=== PATIENT | female | born 1940 | race Caucasian/White ===

== ENCOUNTER 2017-12-11 01:16 | Outpatient (CLI) | payer MEDICARE, SELFPAY ==
[2017-12-12 10:21] LABS: CEA 0.6 ng/ml
== END 2017-12-11 01:36 ==
PROVIDERS: Visit Provider Internal Medicine Hematology & Oncology
DX: C20 Malignant neoplasm of rectum (principal)
CPT/HCPCS: 36415; 82378

== ENCOUNTER 2017-12-13 14:53 | Outpatient (CLI) | payer MEDICARE, SELFPAY ==
--- NOTE | 2017-12-13 12:29 | DI.US_ITS ---
SYMPTOMS/DIAGNOSIS: POSTMENOPAUSAL BLEEDING, N95.0 PELVIC ULTRASOUND: Transabdominal and transvaginal examination was performed. The uterus measures 5.2 cm long x 1.7 cm AP x 2.1 cm transverse. The endometrial stripe is within normal limits at 0.2 cm. No myometrial mass is present. The ovaries were not seen transabdominally or transvaginally. No adnexal masses are present. The kidneys show no evidence of hydronephrosis. Incidental note is made of a small simple cyst on the right kidney. IMPRESSION: Nonvisualization of the ovaries. Otherwise negative pelvic ultrasound.
== END 2017-12-13 15:13 ==
PROVIDERS: Visit Provider Nurse Practitioner Family
DX: N95.0 Postmenopausal bleeding (principal)
CPT/HCPCS: 76830; 76856

== ENCOUNTER 2017-12-30 09:23 | Emergency (ER) | payer MEDICARE, SELFPAY ==
[2017-12-30 09:33] VITALS: BP 152/82; PULSE 87; RESP 16; TEMP 36.5; O2SAT 97
--- NOTE | 2017-12-30 10:06 | W.ED.GENAD ---
Discharge Plan Disposition Patient Disposition: HOME Condition: Good Discharge Details Chief Complaint: Urinary Clinical Impression: Acute UTI Primary Care Provider: Mae Romero ED Provider: Peterson Marquez Home Meds and New Rx's Prescriptions: New nitrofurantoin monohyd/m-cryst [Macrobid] 100 mg capsule 100 mg PO BID Qty: 9 RF: 0 No Action ANTI-DIARRHEAL+GAS RELIEF CPLT 1 EACH tablet 1 tab PO Daily prn RF: 0 multivitamin [Daily Multi-Vitamin] 1 EACH tablet 1 ea PO DAILY RF: 0 evening primrose oil [Evening Virgin] 500 MG capsule 500 mg PO DAILY RF: 0 ibuprofen 200 MG capsule 2 cap PO BID PRN RF: 0 calcium carbonate-vitamin D3 1 EACH tablet 1 ea PO BID RF: 0 glucosam-chond to-teftay-au ac 1 EACH capsule 1 ea PO BID RF: 0 cranberry fruit concentrate 450 MG capsule 2 tab PO DAILY RF: 0 ferrous gluconate 325 MG tablet 325 mg PO 2x/week Qty: 100 RF: 0 probiotic gummy 2 RF: 0 lisinopril 10 MG tablet 10 mg PO DAILY Qty: 90 RF: 3 psyllium husk [Metamucil] 0.52 GM capsule 1 cap PO DAILY RF: 0 nystatin (bulk) 1 EACH powder 1 applic Topical BID PRN Qty: 60 RF: 2 hydrochlorothiazide 12.5 MG tablet 12.5 mg PO DAILY Qty: 90 RF: 4 Discharge Instructions Instructions: Urinary Tract Infection in Women (ED) Additional Instructions: Feel free to return to the emergency department for any new or worsening symptoms otherwise follow-up with your primary care provider if not improving over the next couple days. Take your antibiotics until fully complete Referrals: Mae Romero, CATERING SALES MANAGER [Primary Care Provider] - (As needed for reassessment or if not improving) Medical Decision Making Patient presenting to the emergency department for chief complaint of UTI. Patient reports that she yesterday began having urinary frequency and took a Pyridium that seemed to help. Then beginning early this morning she started having a return of symptoms with some burning associated along with urination. She does state previous urinary tract infections with similar presentation. Patient denies any other symptoms. Physical exam is unremarkable and shows no CVA tenderness, patient is alert and oriented, patient has no other findings that would make me concerned for urosepsis, pyelonephritis, or other etiology at this time. staffing and scheduling coordinator initiated protocol for urinalysis and patient denies any need for anything pending results. After review of urinalysis which is consistent with urinary tract infection old records were reviewed and patient was placed upon Macrobid as previously she had been placed upon Keflex. Patient encouraged t follow-up with her primary care provider if not improving over the next couple days. After discussion of diagnosis and plan of care patient is no further needs, questions, or concerns and states clear understanding to return to the emergency department for any worsening symptoms. Medical Records Medical records reviewed: Yes I reviewed the patient's medical records. Lab Data Lab results reviewed: Yes I reviewed the patient's lab results. HPI General Mode of arrival: ambulatory. Date/Time Provider Initiated Documentation: 12/30/17 09:59. Limitations to Documentation: no limitations. Information obtained by: patient, RN notes reviewed and old records reviewed. History of Present Illness 77 year old F presents to the emergency department with the chief complaint of UTI, Quality is described as burning, and is localized to the genitals. Patient reports no radiation. Patient started experiencing this day(s) (1) and it has been intermittent. other things that improve symptom(s), (Pyridium) No exacerbating factors reported . Patient notes no other symptoms.. Patient did receive the following treatments prior to arrival, none Related Data Home Medications Medication Instructions Recorded Confirmed Anti-Diarrheal+Gas Relief Cplt 1 tab PO Daily prn 10/27/12 12/12/17 calcium carbonate-vitamin D3 1 ea PO BID 10/27/12 12/12/17 cranberry fruit concentrate 2 tab PO DAILY 10/27/12 12/12/17 evening primrose oil [Evening 500 mg PO DAILY 10/27/12 12/12/17 Virgin] glucosam-chond hy-ytdwes-jx ac 1 ea PO BID 10/27/12 12/12/17 ibuprofen 2 cap PO BID PRN tab-cap 10/27/12 12/12/17 multivitamin [Daily Multi-Vitamin] 1 ea PO DAILY 10/27/12 12/12/17 ferrous gluconate 325 mg PO 2x/week #100 tab-cap 10/29/15 Probiotic Gummy 2 11/24/16 12/12/17 lisinopril 10 mg PO DAILY #90 tab-cap 08/07/17 psyllium husk [Metamucil] 1 cap PO DAILY 09/18/17 12/12/17 nystatin (bulk) 1 applic TOPICAL BID PRN #60 gm 09/22/17 hydrochlorothiazide 12.5 mg PO DAILY #90 tab-cap 11/08/17 nitrofurantoin monohyd/m-cryst 100 mg PO BID #9 cap 12/30/17 [Macrobid] Previous Rx's Medication Instructions Recorded lisinopril 10 mg PO DAILY #90 tab-cap 08/07/17 nystatin (bulk) 1 applic TOPICAL BID PRN #60 gm 09/22/17 hydrochlorothiazide 12.5 mg PO DAILY #90 tab-cap 11/08/17 nitrofurantoin monohyd/m-cryst 100 mg PO BID #9 cap 12/30/17 [Macrobid] Allergies Allergy/AdvReac Type Severity Reaction Status Date / Time Sulfa (Sulfonamide Allergy Unknown Unverified 12/30/17 10:58 Antibiotics) sulfamethoxazole Allergy Unknown Unverified 12/30/17 10:58 [From Bactrim] trimethoprim [From Bactrim] Allergy Unknown Unverified 12/30/17 10:58 General Stated Complaint: Urinary LEESA: 4 Review of Systems Constitutional Denies body ache(s), Denies chills, Denies fever(s), Denies malaise and Denies weakness Cardiovascular Denies chest pain Respiratory Reports system reviewed and no additional complaints, except as docu Gastrointestinal Denies abdominal pain, Denies nausea and Denies vomiting Genitourinary Reports as per HPI, Denies hematuria, Reports dysuria and Reports urinary urgency Neurologic Denies confusion and Denies weakness Psychiatric Denies confusion [facility] Family History Mother Diabetes Essential hypertension Neoplasm Cerebrovascular accident Maternal Aunt Neoplasm Father No problems noted. Grandfather Heart disease Grandmother No problems noted. Son No problems noted. Daughter No problems noted. Social History Smoking/Tobacco Use Status: Former Tobacco Use alcohol intake: current substance use type: does not use seatbelt use: always Surgical History section Colectomy (~2002) FLEX SIG (01/02/15) Female Reproductive History Menstrual Menopause type: natural Exam Const General: cooperative and no acute distress Orientation: alert, awake and oriented x3 Resp Effort & Inspection: normal respiratory effort and able to speak in complete sentences Auscultation: clear to auscultation bilaterally Cardio Rate: regular rate Rhythm: regular rhythm Heart Sounds: S1 normal and S2 normal GI Palpation: nontender Back/Spine/Pelvis Back: no CVA tenderness Neuro General: alert, awake and oriented x3 Extrem General: normal capillary refill Course Vital Signs Temperature 36.5 C 12/30/17 09:33 Pulse 87 12/30/17 09:33 Respiratory Rate 16 12/30/17 09:33 Blood Pressure 152/82 H 12/30/17 09:33 Pulse Oximetry 97 12/30/17 09:33 Temperature 36.5 C 12/30/17 09:33 Temperature Source Skin 12/30/17 09:33 Pulse 87 12/30/17 09:33 Respiratory Rate 16 12/30/17 09:33 Respiratory Effort Accessory Muscle Use 12/30/17 09:34 Blood Pressure 152/82 H 12/30/17 09:33 Blood Pressure Position Sitting 12/30/17 09:33 Pulse Oximetry 97 12/30/17 09:33 Oxygen Delivery Method Room Air 12/30/17 09:33 Oxygen Flow Rate 0 12/30/17 09:33 Pain Level 0 12/30/17 09:34
--- NOTE | 2017-12-30 10:10 | ED.GENADUL_ITS ---
Discharge Plan Disposition Patient Disposition: HOME Condition: Good Discharge Details Chief Complaint: Urinary Clinical Impression: Acute UTI Primary Care Provider: Mae Romero ED Provider: Peterson Marquez Home Meds and New Rx's Prescriptions: New nitrofurantoin monohyd/m-cryst [Macrobid] 100 mg capsule 100 mg PO BID Qty: 9 RF: 0 No Action ANTI-DIARRHEAL+GAS RELIEF CPLT 1 EACH tablet 1 tab PO Daily prn RF: 0 multivitamin [Daily Multi-Vitamin] 1 EACH tablet 1 ea PO DAILY RF: 0 evening primrose oil [Evening [place]] 500 MG capsule 500 mg PO DAILY RF: 0 ibuprofen 200 MG capsule 2 cap PO BID PRN RF: 0 calcium carbonate-vitamin D3 1 EACH tablet 1 ea PO BID RF: 0 glucosam-chond me-dztznd-ic ac 1 EACH capsule 1 ea PO BID RF: 0 cranberry fruit concentrate 450 MG capsule 2 tab PO DAILY RF: 0 ferrous gluconate 325 MG tablet 325 mg PO 2x/week Qty: 100 RF: 0 probiotic gummy 2 RF: 0 lisinopril 10 MG tablet 10 mg PO DAILY Qty: 90 RF: 3 psyllium husk [Metamucil] 0.52 GM capsule 1 cap PO DAILY RF: 0 nystatin (bulk) 1 EACH powder 1 applic Topical BID PRN Qty: 60 RF: 2 hydrochlorothiazide 12.5 MG tablet 12.5 mg PO DAILY Qty: 90 RF: 4 Discharge Instructions Instructions: Urinary Tract Infection in Women (ED) Additional Instructions: Feel free to return to the emergency department for any new or worsening symptoms otherwise follow-up with your primary care provider if not improving over the next couple days. Take your antibiotics until fully complete Referrals: Mae Romero, WELLFIELD TECHNICIAN [Primary Care Provider] - (As needed for reassessment or if not improving) Medical Decision Making Patient presenting to the emergency department for chief complaint of UTI. Patient reports that she yesterday began having urinary frequency and took a Pyridium that seemed to help. Then beginning early this morning she started having a return of symptoms with some burning associated along with urination. She does state previous urinary tract infections with similar presentation. Patient denies any other symptoms. Physical exam is unremarkable and shows no CVA tenderness, patient is alert and oriented, patient has no other findings that would make me concerned for urosepsis, pyelonephritis, or other etiology at this time. medical staffing coordinator initiated protocol for urinalysis and patient denies any need for anything pending results. After review of urinalysis which is consistent with urinary tract infection old records were reviewed and patient was placed upon Macrobid as previously she had been placed upon Keflex. Patient encouraged t follow-up with her primary care provider if not improving over the next couple days. After discussion of diagnosis and plan of care patient is no further needs, questions, or concerns and states clear understanding to return to the emergency department for any worsening symptoms. Medical Records Medical records reviewed: Yes I reviewed the patient's medical records. Lab Data Lab results reviewed: Yes I reviewed the patient's lab results. HPI General Mode of arrival: ambulatory . Date/Time Provider Initiated Documentation: 12/30/17 09:59 . Limitations to Documentation: no limitations . Information obtained by: patient, RN notes reviewed and old records reviewed . History of Present Illness 77 year old F presents to the emergency department with the chief complaint of UTI, Quality is described as burning, and is localized to the genitals. Patient reports no radiation. Patient started experiencing this day(s) (1) and it has been intermittent. other things that improve symptom(s), (Pyridium ) No exacerbating factors reported . Patient notes no other symptoms.. Patient did receive the following treatments prior to arrival, none Related Data Home Medications Medication Instructions Recorded Confirmed Anti-Diarrheal+Gas Relief Cplt 1 tab PO Daily prn 10/27/12 12/12/17 calcium carbonate-vitamin D3 1 ea PO BID 10/27/12 12/12/17 cranberry fruit concentrate 2 tab PO DAILY 10/27/12 12/12/17 evening primrose oil [Evening 500 mg PO DAILY 10/27/12 12/12/17 [place]oo] glucosam-chond pc-gdywpe-oj ac 1 ea PO BID 10/27/12 12/12/17 ibuprofen 2 cap PO BID PRN tab-cap 10/27/12 12/12/17 multivitamin [Daily Multi-Vitamin] 1 ea PO DAILY 10/27/12 12/12/17 ferrous gluconate 325 mg PO 2x/week #100 tab-cap 10/29/15 Probiotic Gummy 2 11/24/16 12/12/17 lisinopril 10 mg PO DAILY #90 tab-cap 08/07/17 psyllium husk [Metamucil] 1 cap PO DAILY 09/18/17 12/12/17 nystatin (bulk) 1 applic TOPICAL BID PRN #60 gm 09/22/17 hydrochlorothiazide 12.5 mg PO DAILY #90 tab-cap 11/08/17 nitrofurantoin monohyd/m-cryst 100 mg PO BID #9 cap 12/30/17 [Macrobid] Previous Rx's Medication Instructions Recorded lisinopril 10 mg PO DAILY #90 tab-cap 08/07/17 nystatin (bulk) 1 applic TOPICAL BID PRN #60 gm 09/22/17 hydrochlorothiazide 12.5 mg PO DAILY #90 tab-cap 11/08/17 nitrofurantoin monohyd/m-cryst 100 mg PO BID #9 cap 12/30/17 [Macrobid] Allergies Allergy/AdvReac Type Severity Reaction Status Date / Time Sulfa (Sulfonamide Allergy Unknown Unverified 12/30/17 10:58 Antibiotics) sulfamethoxazole Allergy Unknown Unverified 12/30/17 10:58 [From Bactrim] trimethoprim [From Bactrim] Allergy Unknown Unverified 12/30/17 10:58 General Stated Complaint: Urinary LEESA: 4 Review of Systems Constitutional Denies body ache(s), Denies chills, Denies fever(s), Denies malaise and Denies weakness Cardiovascular Denies chest pain Respiratory Reports system reviewed and no additional complaints, except as docu Gastrointestinal Denies abdominal pain, Denies nausea and Denies vomiting Genitourinary Reports as per HPI, Denies hematuria, Reports dysuria and Reports urinary urgency Neurologic Denies confusion and Denies weakness Psychiatric Denies confusion [facility] Family History Mother Diabetes Essential hypertension Neoplasm Cerebrovascular accident Maternal Aunt Neoplasm Father No problems noted. Grandfather Heart disease Grandmother No problems noted. Son No problems noted. Daughter No problems noted. Social History Smoking/Tobacco Use Status: Former Tobacco Use alcohol intake: current substance use type: does not use seatbelt use: always Surgical History section Colectomy (~2002) FLEX SIG (01/02/15) Female Reproductive History Menstrual Menopause type: natural Exam Const General: cooperative and no acute distress Orientation: alert, awake and oriented x3 Resp Effort & Inspection: normal respiratory effort and able to speak in complete sentences Auscultation: clear to auscultation bilaterally Cardio Rate: regular rate Rhythm: regular rhythm Heart Sounds: S1 normal and S2 normal GI Palpation: nontender Back/Spine/Pelvis Back: no CVA tenderness Neuro General: alert, awake and oriented x3 Extrem General: normal capillary refill Course Vital Signs Temperature 36.5 C 12/30/17 09:33 Pulse 87 12/30/17 09:33 Respiratory Rate 16 12/30/17 09:33 Blood Pressure 152/82 H 12/30/17 09:33 Pulse Oximetry 97 12/30/17 09:33 Temperature 36.5 C 12/30/17 09:33 Temperature Source Skin 12/30/17 09:33 Pulse 87 12/30/17 09:33 Respiratory Rate 16 12/30/17 09:33 Respiratory Effort Accessory Muscle Use 12/30/17 09:34 Blood Pressure 152/82 H 12/30/17 09:33 Blood Pressure Position Sitting 12/30/17 09:33 Pulse Oximetry 97 12/30/17 09:33 Oxygen Delivery Method Room Air 12/30/17 09:33 Oxygen Flow Rate 0 12/30/17 09:33 Pain Level 0 12/30/17 09:34
[2017-12-30 10:30] LABS: Bilirubin Negative (Negative); Blood Trace-intact (Negative); Clarity Cloudy; Glucose Negative (Negative); Ketones Trace mg/dL (Negative); Leukocyte Esterase Small (Negative); Nitrite Positive (Negative); Specific Gravity 1.025 (1.005-1.025); Urobilinogen 0.2 EU/dL (Up TO 0.2); pH 5.5 (5-8)
[2017-12-30 10:39] LABS: Bacteria Few HPF (Negative); C & S Indicated? Yes; Casts Negative LPF (Negative); Crystals Negative HPF (Negative); Epithelial Cells Negative HPF (Negative); Mucus Negative (Negative); WBC >50 HPF (0-5)
[2017-12-30] MEDS: MacroBID 100 MG CAP PO (10:55)
== END 2017-12-30 10:57 | disposition home or self-care (01) ==
PROVIDERS: Emergency Provider Nurse Practitioner Family
DX: N39.0 Urinary tract infection, site not specified (principal); B95.2 Enterococcus as the cause of diseases classified elsewhere
CPT/HCPCS: 87077; 99283; 81003; 81015; 87086; 87186

== ENCOUNTER 2018-01-05 01:08 | Outpatient (CLI) | payer MEDICARE, SELFPAY ==
--- NOTE | 2018-01-05 15:43 | DI.MAMMO_ITS ---
SYMPTOM/DIAGNOSIS: SCREENING, Z12.31 MAMMOGRAMS: Mammograms were interpreted according to the usual protocol including computer analysis with CAD system, tomosynthesis and C view imaging. Comparison is made with prior examinations. Breast density, category B. No suspicious masses or microcalcifications are seen. There has been no significant change compared to the prior examinations. IMPRESSION: No evidence for malignancy. Yearly mammography is recommended. Category 1. MQSA ASSESSMENT OF FINDINGS: Negative. Category 1. Patient will receive a letter notifying them of these results. BI-RADS category B. There are scattered areas of fibroglandular density.
== END 2018-01-05 01:28 ==
PROVIDERS: Visit Provider Nurse Practitioner Family
DX: Z12.31 Encounter for screening mammogram for malignant neoplasm of breast (principal)
CPT/HCPCS: 77063; 77067

== ENCOUNTER 2018-03-22 19:03 | Outpatient (REF) | payer MEDICARE, SELFPAY | END 2018-03-22 19:23 | LOC: LBN 19:03 | DX: N39.0 Urinary tract infection, site not specified (principal) | CPT/HCPCS: 87077; 87086; 87186 ==

== ENCOUNTER 2018-11-26 19:11 | Outpatient (REF) | payer MEDICARE, SELFPAY | END 2018-11-26 19:31 | LOC: LBN 19:11 | PROVIDERS: Visit Provider Internal Medicine | DX: R39.9 Unspecified symptoms and signs involving the genitourinary system (principal) | CPT/HCPCS: 87077; 87086; 87186 ==

== ENCOUNTER 2018-12-19 02:33 | Outpatient (CLI) | payer MEDICARE, SELFPAY ==
[2018-12-19 11:49] LABS: ALT 21 U/L (14-59); AST 15 U/L (15-37); Albumin 3.4 g/dL (3.4-5.0); Alkaline Phosphatase 68 U/L (46-116); Anion Gap 10.4 mmol/L (3-11); BUN 20 mg/dL (7-18); Bilirubin, Total 0.6 mg/dL (0.2-1.0); CO2 24.6 mmol/L (21.0-32.0); CREATININE 0.63 mg/dL (0.55-1.02); Calcium 8.7 mg/dL (8.5-10.1); Chloride 108 mmol/L (98-107); Glucose 96 mg/dL (70-100); Sodium 143 mmol/L (136-145); Total Protein 6.3 g/dL (6.4-8.2)
[2018-12-19 12:54] LABS: HCT 36.7 % (36.0-46.0); HGB 11.6 g/dL (12.0-15.5); Mean Corp. HGB Concentration 31.6 g/dL (32.0-36.0); Mean Corpuscular Hemoglobin 28.4 pg (27.0-33.0); Mean Corpuscular Volume 89.7 fL (80-95); Mean Platelet Volume 10.4 fL (8.0-11.0); Platelet Count 325 x1000/uL (130-400); RBC 4.09 m/cumm (4.00-5.20); RBC Distribution Width 15.2 % (11.7-14.6); White Blood Cell Count 3.73 k/cumm (4.4-10.8)
== END 2018-12-19 02:53 ==
DX: D64.9 Anemia, unspecified (principal); I10 Essential (primary) hypertension; L98.9 Disorder of the skin and subcutaneous tissue, unspecified; R10.9 Unspecified abdominal pain; R53.81 Other malaise; Z90.49 Acquired absence of other specified parts of digestive tract; Z91.89 Other specified personal risk factors, not elsewhere classified; D50.9 Iron deficiency anemia, unspecified
CPT/HCPCS: 36415; 80053; 85027

== ENCOUNTER 2018-12-21 11:37 | Outpatient (REF) | payer MEDICARE, SELFPAY | END 2018-12-21 11:57 | LOC: LBN 11:37 | PROVIDERS: Visit Provider Nurse Practitioner | DX: N39.0 Urinary tract infection, site not specified (principal) | CPT/HCPCS: 87077; 87086; 87186 ==

== ENCOUNTER 2019-01-07 01:17 | Outpatient (CLI) | payer MEDICARE, SELFPAY ==
--- NOTE | 2019-01-07 12:00 | DI.MAMMO_ITS ---
EXAM: MAMMO SCREENING CLINICAL HISTORY: Screening, Z12.39. TECHNIQUE: Mammograms were interpreted according to the usual protocol including computer analysis w [employer] CAD system, tomosynthesis and C-view imaging. COMPARISON: [id number] FINDINGS: The breasts are composed of fatty density tissue, BI-RADS category A. There are no suspicious masses or microcalcifications. There are no significant changes in comparison with the prior images. IMPRESSION: BI-RADS Cat 1 - Negative Breast Density - Category A - Almost entirely fatty
== END 2019-01-07 01:37 ==
PROVIDERS: Visit Provider Nurse Practitioner Family
DX: Z12.31 Encounter for screening mammogram for malignant neoplasm of breast (principal)
CPT/HCPCS: 77063; 77067

== ENCOUNTER 2019-08-13 10:13 | Outpatient (CLI) | payer MEDICARE, SELFPAY ==
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
== END 2019-08-13 10:33 ==
DX: M25.552 Pain in left hip (principal); M79.605 Pain in left leg; R26.9 Unspecified abnormalities of gait and mobility; M25.752 Osteophyte, left hip
CPT/HCPCS: 73521

== ENCOUNTER 2019-08-28 14:12 | Emergency (ER) | payer MEDICARE, SELFPAY ==
[2019-08-28] VITALS (49 sets, daily range): BP systolic 103–152; BP diastolic 51–101; PULSE 84–110; RESP 13–24; TEMP 36.8; O2SAT 93–100
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
--- NOTE | 2019-08-28 13:58 | DI.CT_ITS ---
EXAM: CT THORACIC LUMBAR SPINE REC CLINICAL HISTORY: recon please. TECHNIQUE: Imaging Protocol: Axial computed tomography images with coronal and sagittal reformatted images were created and reviewed. COMPARISON: CR LUMBAR SPINE COMPLETE from 09/15/2010 CR XR HIP PELVIS ADULT BL from 08/13/2019 FINDINGS: Thoracic spine: Bones: No fractures are seen. The alignment of the spine is normal including the cervicothoracic yessenia ction. There are mild degenerative disc changes. Soft tissues: The soft tissues of the chest are unremarkable. No large disk herniations are identifie d. Lumbar spine: There is no evidence of fracture or spondylolysis. There are degenerative disc changes greatest at L 2-3. Facet degenerative changes are prominent from L3-4 through L5-S1. There is mild degenerative s coliosis. No paraspinal hematoma is seen. IMPRESSION: No evidence of fracture or other acute abnormality. Degenerative changes are seen greater in the lum bar spine.. RADIATION DOSE DELIVERED: Total DLP DATA REPOSITORY: All CT scans at this facility are submitted to the National Radiology Data Registry (NRDR) Dose Index Registry (DIR) with the [employer] ([employer]). RADIATION OPTIMIZATION: All CT scans at this facility use at least one of these dose optimization te chniques: automated exposure control; mA and/or kV adjustment per patient size (includes targeted exa ms where dose is matched to clinical indication); or iterative reconstruction.
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
[2019-08-28 14:30] LABS: Abs Immature Grans 0.17 k/cumm (0.0-0.09); Absolute Basophil Count 0.03 k/cumm (0.0-0.2); Absolute Eosinophil Count 0.05 k/cumm (0.0-0.7); Absolute Lymphocyte Count 1.27 k/cumm (1.2-3.4); Absolute Monocyte Count 0.92 k/cumm (0.11-0.7); Basophils % 0.3; Eosinophils % 0.4; HCT 34.2 % (36.0-46.0); HGB 10.8 g/dL (12.0-15.5); Immature Grans % 1.5 %; Lymphocytes % 10.9; Mean Corp. HGB Concentration 31.6 g/dL (32.0-36.0); Mean Corpuscular Hemoglobin 28.1 pg (27.0-33.0); Mean Corpuscular Volume 88.8 fL (80-95); Mean Platelet Volume 9.5 fL (8.0-11.0); Monocytes % 7.9; Platelet Count 347 x1000/uL (130-400); RBC 3.85 m/cumm (4.00-5.20); RBC Distribution Width 15.8 % (11.7-14.6); White Blood Cell Count 11.64 k/cumm (4.4-10.8)
[2019-08-28 14:43] LABS: PTT Activated 19.2 sec (21.0-31.4); Prothrombin Time 9.7 sec (9.3-11.0)
[2019-08-28] MEDS: ACETAMINOPHEN 1,000 MG/100 ML BTL 400 MG IVPB (14:43)
[2019-08-28 14:45] LABS: ALT 34 U/L (14-59); AST 34 U/L (15-37); Albumin 3.4 g/dL (3.4-5.0); Alkaline Phosphatase 68 U/L (46-116); Anion Gap 10.2 mmol/L (3-11); BUN 31 mg/dL (7-18); Bilirubin, Total 0.6 mg/dL (0.2-1.0); CO2 23.8 mmol/L (21.0-32.0); CREATININE 0.84 mg/dL (0.55-1.02); Calcium 9.3 mg/dL (8.5-10.1); Chloride 105 mmol/L (98-107); Glucose 120 mg/dL (74-106); Potassium 3.6 mmol/L (3.5-5.1); Sodium 139 mmol/L (136-145); Total Protein 6.7 g/dL (6.4-8.2); Troponin I < 0.05 ng/mL (<0.06)
[2019-08-28 14:56] LABS: Lipase 186 U/L (73-393)
[2019-08-28 18:24] LABS: Troponin I < 0.05 ng/mL (<0.06)
== END 2019-08-28 21:08 | disposition short-term general hospital (02) ==
PROVIDERS: Emergency Provider Physician Assistant
DX: S26.19XA Other injury of heart without hemopericardium, initial encounter (principal); S20.312A Abrasion of left front wall of thorax, initial encounter; S80.11XA Contusion of right lower leg, initial encounter; S80.12XA Contusion of left lower leg, initial encounter; S22.42XA Multiple fractures of ribs, left side, initial encounter for closed fracture; S61.412A Laceration without foreign body of left hand, initial encounter; R94.31 Abnormal electrocardiogram [ECG] [EKG]; V47.5XXA Car driver injured in collision with fixed or stationary object in traffic accident, initial encounter; I10 Essential (primary) hypertension
CPT/HCPCS: 36415; 74177; 80053; 83690; 86850; 86900; 86901; 93005; 96374; 99285; 70450; 71260; 72125; 81003; 83735; 84484; 85025; 85610; 85730; 93010; J0131

== ENCOUNTER 2019-11-04 20:40 | Outpatient (REF) | payer MEDICARE, SELFPAY ==
[2019-11-04 21:04] LABS: Bilirubin Negative (Negative); Blood Trace-intact (Negative); Clarity Clear (Clear); Glucose Negative (Negative); Ketones Negative (Negative); Leukocyte Esterase Small (Negative); Nitrite Negative (Negative); Urobilinogen 0.2 EU/dL (Up TO 0.2)
[2019-11-04 21:33] LABS: Bacteria Negative HPF (Negative); C & S Indicated? Yes; Casts Negative LPF (Negative); Crystals Negative HPF (Negative); Epithelial Cells Negative HPF (Negative); Mucus Negative (Negative); Other Cells Negative (Negative); RBC Negative HPF (0-2); WBC 20-50 HPF (0-5)
== END 2019-11-04 21:00 ==
LOC: LBN 20:40
DX: R30.0 Dysuria (principal)
CPT/HCPCS: 81003; 81015; 87086

== ENCOUNTER 2019-11-12 20:47 | Outpatient (REF) | payer MEDICARE, SELFPAY ==
[2019-11-12 22:22] LABS: Bilirubin Negative (Negative); Blood Trace-intact (Negative); Clarity Sl Cloudy (Clear); Glucose Negative (Negative); Ketones Negative (Negative); Leukocyte Esterase Moderate (Negative); Nitrite Positive (Negative); Specific Gravity >= 1.030 (1.005-1.025); Urobilinogen 0.2 EU/dL (Up TO 0.2)
[2019-11-12 22:25] LABS: C & S Indicated? Yes; WBC >50 HPF (0-5)
== END 2019-11-12 21:07 ==
LOC: LBN 20:47
DX: N39.0 Urinary tract infection, site not specified (principal)
CPT/HCPCS: 87077; 81003; 81015; 87086; 87186

== ENCOUNTER → 2019-12-04 10:54 | Outpatient (BNVA) | payer MEDICARE, SELFPAY | PROVIDERS: Visit Provider Nurse Practitioner Gerontology | DX: N39.0 Urinary tract infection, site not specified (principal); I10 Essential (primary) hypertension; C20 Malignant neoplasm of rectum; D64.9 Anemia, unspecified | CPT/HCPCS: 81003; 99204; 99215 ==

== ENCOUNTER 2019-12-04 21:13 | Outpatient (REF) | payer MEDICARE, SELFPAY | END 2019-12-04 21:33 | LOC: LBN 21:13 | PROVIDERS: Visit Provider Nurse Practitioner Gerontology | DX: N39.0 Urinary tract infection, site not specified (principal) | CPT/HCPCS: 87086 ==

== ENCOUNTER → 2019-12-18 10:54 | Outpatient (BNVA) | payer MEDICARE, SELFPAY | PROVIDERS: Visit Provider Nurse Practitioner Gerontology | DX: N39.0 Urinary tract infection, site not specified (principal); I10 Essential (primary) hypertension; Z92.3 Personal history of irradiation; Z85.038 Personal history of other malignant neoplasm of large intestine | CPT/HCPCS: 81003; 99213 ==

== ENCOUNTER 2020-01-24 02:58 | Outpatient (CLI) | payer MEDICARE, SELFPAY ==
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
== END 2020-01-24 03:18 ==
DX: Z12.31 Encounter for screening mammogram for malignant neoplasm of breast (principal); R92.1 Mammographic calcification found on diagnostic imaging of breast
CPT/HCPCS: 77063; 77067

== ENCOUNTER 2020-03-25 01:54 | Outpatient (CLI) | payer MEDICARE, SELFPAY ==
--- OUTSIDE RECORDS SUMMARY | 2020-03-25 01:56 | XMS_ITS ---
:1940 Author Care Team Providers Name Role Phone DR. THAI BEAR Primary Care Provider [phone] DR. THAI BEAR Referring Provider [phone] DEBBIE CANTU Primary Care Provider [phone] Allergies Code Code System Name Reaction Severity Status Onset Sulfa (Sulfonamide ? ? Active ? Antibiotics) 86270 RxNorm Sulfamethoxazole ? ? Active ? 98270 RxNorm Trimethoprim ? ? Active ? Medications Name Status Start Date Stop Date ? ? calcium carbonate 600 mg (1,500 mg)-vitamin D3 200 unit tablet A ctive ? Not available Take 1 tablet every day by oral route. cranberry 450 mg tablet Active ? Not avai lable Take 2 tablets every day by oral route. estradiol 0.01% (0.1 mg/gram) vaginal cream Completed ? 08/15/2017 Insert by vaginal route. evening primrose oil 500 mg capsule Active ? Not available Take 1 capsule every day by oral route. ferrous gluconate 325 mg (27 mg iron) tablet Active ? Not available Take 1 tablet twice a week by oral route. Glucos Chond Cplx Advanced Active ? Not a vailable once daily hydrochlorothiazide 12.5 mg tablet Active ? Not available Take 1 tablet every day by oral route. ibuprofen 200 mg tablet Active ? Not avai lable Take 1 tablet every 6 hours by oral route as needed. lisinopril 10 mg tablet Active ? Not avai lable Take 1 tablet every day by oral route. lisinopril 5 mg tablet Completed ? 8 Take 1 tablet every day by oral route. loperamide-simethicone 2 mg-125 mg tablet Active ? Not available Take 1 tablet as needed by oral route as needed. Metamucil (with sugar) 3.4 gram oral Active ? Not available powder packet multivitamin Active ? Not available once daily nystatin (bulk) 1 billion unit powder Active ? Not available Probiotic Active ? Not available Take Two daily Vitamin C 500 mg capsule,extended release Active ? Not available Take 1 capsule twice a week by oral route. Problems Name Status Onset Date Source ? Malignant Tumor of Colon Active 04/03/2002 ? Malignant Tumor of Rectum Active 08/07/2017 ? Anemia Active 08/07/2017 ? Atrophic Vaginitis Active 08/07/2017 ? Osteoarthritis Active 08/07/2017 ? Hypertensive Disorder Active ? ? Procedures Date Name Performed by ? 01/02/2015 Flexible Sigmoidoscopy Information not a vailable Notes: MARYLU 04/03/2002 Bowel Surgery Procedure Information not available Notes: colon resection ? Caesarean Section Information not avai lable Results Lab Results None recorded. Past Encounters None recorded. Social History Tobacco Smoking Status Former Smoker Notes: 09/15/19 Vaccine List Vaccine Type pneumococcal conjugate PCV 13 01/05/2017 pneumococcal polysaccharide PPV23 01/07/2010 Td (adult) 01/10/2012 zoster live 02/07/2008 Plan of Care Reminders Provider Appointments None ? ? recorded. Lab None ? ? recorded. Referral None ? ? recorded. Procedures None ? ? recorded. Surgeries None ? ? recorded. Imaging None ? ? recorded. Vitals 09/14/2017 11:00AM FOLLOW UP Height Weight BMI Blood Pressure 149.86 cm 54.88 kg 24.4 kg/m2 122/74 mm[Hg] 08/15/2017 01:15PM CONSULT Height Weight BMI Blood Pressure 149.86 cm 55.79 kg 24.8 kg/m2 140/72 mm[Hg]
[2020-03-25 14:31] LABS: Abs Immature Grans 0.02 10^3/uL (0.0-0.06); Absolute Basophil Count 0.04 10^3/uL (0.0-0.2); Absolute Eosinophil Count 0.11 10^3/uL (0.0-0.7); Absolute Lymphocyte Count 1.24 10^3/uL (1.2-3.4); Absolute Neutrophil Count 3.66 10^3/uL (1.2-6.7); Basophils % 0.7; HCT 37.4 % (36.0-46.0); HGB 11.9 g/dL (11.2-15.7); Immature Grans % 0.4; Lymphocytes % 22.3; MCH 28.6 pg (27.0-33.0); MCHC 31.8 % (32.0-36.0); MCV 89.9 fL (80-95); MPV 9.6 fL (8.0-11.0); Neutrophils % 65.6; Nucleated RBC 0 %; Platelet Count 275 10^3/uL (130-400); RBC 4.16 10^6/uL (3.93-5.22); RDW 14.6 % (11.7-14.6); WBC 5.57 10^3/uL (4.4-10.8)
== END 2020-03-25 02:14 ==
DX: Z87.440 Personal history of urinary (tract) infections (principal); R35.0 Frequency of micturition; R82.998 Other abnormal findings in urine; Z79.899 Other long term (current) drug therapy
CPT/HCPCS: 36415; 81003; 99213; 85025

== ENCOUNTER 2020-04-07 18:16 | Outpatient (REF) | payer MEDICARE, SELFPAY ==
[2020-04-07 21:31] LABS: Bilirubin Negative (Negative); Blood Negative (Negative); Clarity Cloudy (Clear); Glucose Negative (Negative); Ketones Negative (Negative); Leukocyte Esterase Moderate (Negative); Nitrite Positive (Negative); Specific Gravity >= 1.030 (1.005-1.025); Urobilinogen 0.2 EU/dL (Up TO 0.2); pH 5.5 (5-8)
[2020-04-07 22:00] LABS: Bacteria Negative HPF (Negative); Epithelial Cells Negative HPF (Negative); RBC Negative HPF (0-2); WBC 20-50 HPF (0-5)
[2020-04-07 22:01] LABS: Crystals Many Amorphous HPF (Negative)
[2020-04-07 22:02] LABS: C & S Indicated? Yes; Casts Negative LPF (Negative); Mucus Negative (Negative)
== END 2020-04-07 18:36 ==
LOC: LBN 18:16
DX: N39.0 Urinary tract infection, site not specified (principal)
CPT/HCPCS: 87077; 81003; 81015; 87086; 87186

== ENCOUNTER 2020-07-30 17:25 | Inpatient (IN) | payer MEDICARE, SELFPAY ==
[2020-07-30 17:45] VITALS: BP 173/73; PULSE 95; RESP 20; TEMP 36.6; O2SAT 96
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
--- NOTE | 2020-07-30 18:54 | DI.RAD_ITS ---
Exam(s) XR HAND LT COMPLETE EXAM: XR HAND LT COMPLETE CLINICAL HISTORY: twisted in dog collar. TECHNIQUE: 2D digital imaging was performed. COMPARISON: No exams were available for comparison FINDINGS: BONES: There is an acute oblique fracture through the midshaft of the proximal phalanx of the left mi ddle finger the fracture does not appear to extend into the articular surfaces. There is 9 mm of rad ial displacement of the distal fracture with 5 mm of overriding of the fragments. No bony destructiv e lesion is seen. Bones are osteopenic. JOINTS: No dislocation present. There are degenerative changes in the hand and wrist most marked at t he 1st CMC joint. SOFT TISSUE: There is soft tissue swelling of the 3rd finger. IMPRESSION: Displaced oblique fracture of the proximal phalanx of the left middle finger. DATA REPOSITORY: RADIATION DOSE DELIVERED:
--- NOTE | 2020-07-30 19:09 | DI.VRAD_ITS ---
PROCEDURE INFORMATION: Exam: XR Left Hand Exam date and time: 07/30/2020 6:57 PM Age: 80 years old Clinical indication: Other: Twisted in dog collar TECHNIQUE: Imaging protocol: XR Left hand. Views: 3 or more views. COMPARISON: No relevant prior studies available. FINDINGS: Bones/joints: Oblique extra-articular fracture of the 3rd proximal phalanx with 9 mm radial displacement and 5 mm overriding of fragments. Diffuse osteopenia. Osteoarthritis, most prominent at the triscaphe and 1st carpometacarpal joints. Soft tissues: Normal. IMPRESSION: 1. Displaced extra-articular oblique fracture of the middle finger proximal phalanx. 2. Osteopenia. 3. Osteoarthritis. Dictated and Authenticated by: Jaspreet Neal MD. Ordering:GEMMA Moss MD
[2020-07-30 19:36] VITALS: BP 169/72; PULSE 80; RESP 18; TEMP 36.6; O2SAT 97
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
[2020-07-30 19:49] LABS: Source Nasal/Nares
[2020-07-30 20:36] VITALS: BP 169/72; PULSE 80; RESP 18; TEMP 36.6; O2SAT 97
[2020-07-30 20:37] LABS: HCT 39.5 % (36.0-46.0); MCH 29.5 pg (27.0-33.0); MCHC 32.9 % (32.0-36.0); MCV 89.6 fL (80-95); MPV 9.5 fL (8.0-11.0); Platelet Count 295 10^3/uL (130-400); RBC 4.41 10^6/uL (3.93-5.22); RDW 14.6 % (11.7-14.6); RDW-SD 48.4 fL; WBC 8.18 10^3/uL (4.4-10.8)
[2020-07-30 20:58] LABS: Prothrombin Time 9.9 sec (9.3-11.0)
[2020-07-30 21:00] LABS: ALT 25 U/L (14-59); AST 18 U/L (15-37); Albumin 3.9 g/dL (3.4-5.0); Alkaline Phosphatase 80 U/L (46-116); Anion Gap 11.3 mmol/L (3-11); BUN 26 mg/dL (7-18); Bilirubin, Total 0.6 mg/dL (0.2-1.0); CO2 26.7 mmol/L (21.0-32.0); CREATININE 0.8 mg/dL (0.55-1.02); Calcium 9.7 mg/dL (8.5-10.1); Chloride 104 mmol/L (98-107); Glucose 106 mg/dL (74-106); Sodium 142 mmol/L (136-145); Total Protein 7.4 g/dL (6.4-8.2)
[2020-07-30 21:09] VITALS: BP 195/43; PULSE 81; RESP 19; TEMP 36.1; O2SAT 97
[2020-07-30] MEDS: Normal Saline 1,000 ML 30 ML IV (21:09)
--- NOTE | 2020-07-30 21:54 | DI.RAD_ITS ---
Exam(s) XR PORTABLE CHEST AP EXAM: XR PORTABLE CHEST AP CLINICAL HISTORY: PREOP TECHNIQUE: 2D digital imaging was performed. COMPARISON: No exams were available for comparison FINDINGS: MEDIASTINUM: Normal. HEART: Normal. PULMONARY VASCULATURE: Normal. LUNGS: Clear. PLEURAL SPACE: No pleural effusion or pneumothorax. BONE:Within normal limits for the patient's age. OTHER FINDINGS:Normal. IMPRESSION: No acute pulmonary findings. DATA REPOSITORY: RADIATION DOSE DELIVERED:
--- NOTE | 2020-07-30 21:59 | DI.VRAD_ITS ---
PROCEDURE INFORMATION: Exam: XR Chest Exam date and time: 07/30/2020 7:54 PM Age: 80 years old Clinical indication: Pre-operative exam; Cardiovascular screening and respiratory screening exam TECHNIQUE: Imaging protocol: XR of the chest. Views: 1 view. COMPARISON: CT CHEST/ABD/PEL W 08/28/2019 3:09 PM FINDINGS: Lungs: Unremarkable. No consolidation. Pleural spaces: Unremarkable. No pleural effusion. No pneumothorax. Heart/Mediastinum: Unremarkable. No cardiomegaly. Bones/joints: Unremarkable. IMPRESSION: No acute abnormality. Dictated and Authenticated by: Jaspreet Neal MD. Ordering:SILVINA Wallis MD
--- NOTE | 2020-07-30 22:00 | RT.EKG_ITS ---
APPROVED REPORT Exam: Resting ECG Patient Location: I HR:76 bpm ECG Measurements Heart Rate 76 AXIS TN 156 P 65 QRSd 84 QRS 65 QT 419 T 69 QTc 472 Conclusion Sinus rhythm...normal P axis, V-rate 60- [address] depression, diffuse leads...ST <-0.07mV, ant/lat/inf
[2020-07-30 22:03] LABS: COVID-19 PCR Negative (Negative)
[2020-07-30] MEDS: Normal Saline 1,000 ML 75 ML IV (23:59)
[2020-07-31 01:13] VITALS: BP 156/91; PULSE 84; RESP 18; TEMP 36.2; O2SAT 96
[2020-07-31] MEDS: Lisinopril 10 MG TAB PO (07:56)
[2020-07-31] MEDS: hydroCHLOROthiazide 12.5 MG TAB PO (07:56)
[2020-07-31] MEDS: Acetaminophen 325 MG TAB 650 MG PO (07:56)
[2020-07-31 08:13] VITALS: BP 155/80; BP 162/83; PULSE 68; RESP 20; TEMP 36.3; O2SAT 97
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
[2020-07-31 11:16] VITALS: BP 156/78; PULSE 67; RESP 19; TEMP 36.6; O2SAT 97
[2020-07-31] MEDS: Normal Saline 1,000 ML 75 ML IV (11:23)
[2020-07-31 11:53] VITALS: BMI 38.0
--- NOTE | 2020-07-31 12:48 | NUR.NOTE ---
Nursing Note: At 1233 on 07/31/20, this RN brought the pt. down to the PACU to go to the OR for surgery. Per MD plan, pt. is to go from the OR to the PACU to the Day Surgery and will be discharged home from there. Pt.'s room was completely packed up and valuables from the safe were returned to the pt. At 1240 on 07/31/20, this RN gave bedside report on the pt. to the beautician apprentice RN (CECIL Peralta sp?). Responsibility of care transferred to beautician apprentice RN at this time. RN will reassess as necessary.
[2020-07-31] MEDS: Sodium Bicarbonate 50 MEQ/50 ML VIAL (13:56)
--- NOTE | 2020-07-31 14:05 | DI.RAD_ITS ---
Exam(s) XR FINGER LT MIDDLE EXAM: XR FINGER LT MIDDLE CLINICAL HISTORY: fracture left ring finger TECHNIQUE: 2D and realtime digital imaging was performed. CONTRAST MATERIAL: Refer to procedure report. COMPARISON: CR,XR XR HAND LT COMPLETE from 07/30/2020 FINDINGS: Fluoroscopy was provided for Dr. Venegas during the performance of a reduction and percutaneous pinnin g of the fracture of the proximal phalanx of the left middle finger. Please refer to the procedure r eport for complete details. Ka,r=1.88 mGy IMPRESSION: RADIATION DOSE DELIVERED:
[2020-07-31 14:28] VITALS: BP 116/63; PULSE 69; RESP 16; TEMP 36.2; O2SAT 95
--- NOTE | 2020-07-31 14:33 | W.ANESPOSTOP ---
Postoperative Evaluation Date, Time and Location Date Performed: 07/31/20 Time Performed: 14:34 Patient Location: Day Surgery Unit Vital Signs Most Recent Imported Vital Signs: Most Recent Vital Signs Temp Pulse Resp BP Pulse Ox 36.6 C 67 19 156/78 H 97 07/31/20 11:16 07/31/20 11:16 07/31/20 11:16 07/31/20 11:16 07/31/20 11:16 Most Recent Manually Entered Vital Signs: Adult Blood Pressure: 116/63 Heart Rate: 69 Respirations: 16 Oxygen Saturation (%): 95 Temperature (C): 36.2 C Pain Score (0-10 Scale): 0 Pain Score Most Recent Pain Score: Most Recent Pain Score Pain Level [Left Hand] 5 07/31/20 11:23 Pain Level 5 07/31/20 11:23 Assessment Mental Status: Awake (Alert & Oriented to Patient Baseline) Airway and Respiratory Function: Patent airway with normal (patient baseline) respiratory exam Cardiovascular Function: Hemodynamically Stable Hydration Status: Adequately Hydrated Nausea & Vomiting: No Nausea or Vomiting Pain: Pt. Denies Any Pain Peripheral Nerve Block: Patient did not receive a nerve block
[2020-07-31 14:36] VITALS: BP 116/63; PULSE 69; RESP 16; TEMPC 36.2; O2SAT 95
--- NOTE | 2020-07-31 14:40 | W.PM.OP ---
Date of service: 07/31/20 Time of Service: 14:00 Operative Note Operative Note DATE OF PROCEDURE: 07/31/20 PRE-OP DIAGNOSIS: Left long finger displaced proximal phalanx fracture POST-OP DIAGNOSIS: same PROCEDURE: Left long finger closed reduction and percutaneous pinning, CPT #18311 SURGEON: Bimal Venegas STOCK HANGER: Gabriela Moreno ANESTHESIA TYPE: Local By Surgeon and MAC Refer to Anesthesia Record ESTIMATED BLOOD LOSS: 1 TOURNIQUET TIME: 0 COMPLICATIONS: None Patient was transported to: PACU Patient's condition: stable Implants: 0.035 k-wire Indications: Please see complete medical record for details. Findings: Left long finger: Closed injury. Widely displaced, unstable proximal phalanx fracture. Procedure Description: In the operating room, monitored anesthesia care was induced. The patient was positioned supine on the operating room table. All bony prominences were well-padded. Preoperative antibiotics were administered. The correct patient, procedure, and side of the procedure were all verified prior to beginning. The left hand was provisionally prepped and local anesthesia induced through a digital block and into the flexor tendon sheath with 9 cc of 1% lidocaine with epinephrine and 1 cc of sodium bicarbonate. The left hand was then prepped and draped in the usual sterile fashion. Under fluoroscopic guidance, the obvious finger deformity was exaggerated and manipulated into near?anatomic reduction. The fracture was significantly unstable, which was not unexpected. Rotation was checked as well as multiple fluoroscopic views to confirm appropriate reduction. A 0.045 inch K wire was then directed from the radial distal condyle corner of the proximal phalanx to the fracture site and then advanced across the fracture site under fluoroscopic guidance. Unfortunate, this wire caused malreduction at the fracture and was removed. A 0.035 inch K wire was then inserted and directed in a similar path longitudinally down the proximal phalanx from distal to the fracture site, the fracture carefully maintained with excellent reduction by the salon assistant while this more flexible K wire was advanced carefully past the segmental and comminuted parts of the fracture and directed into the base of the proximal phalanx. The tip of the wire was engaged into the far cortex but not advanced into the MCP joint. AP and lateral fluoroscopy confirmed excellent reduction and alignment at the fracture site and appropriate wire placement. The finger was examined in flexion and extension and demonstrated stable fixation. Rotation and cascade were assessed and found to be appropriate. The wire was then bent away from the skin radially and a Yergason protective ball applied. Xeroform was placed about the base of the wire and a small skin tear proximally. The digit was wrapped with Kerlix and then kendall taped to the ring finger to best maintain reduction and protection. These fingers were wrapped gently in Alverto compressive bandage secured to the hand and wrist. The patient awoke from anesthesia without complication and was transferred to the recovery room in a stable condition.
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
[2020-07-31 14:50] VITALS: BP 142/71; PULSE 66; RESP 18; TEMP 36.4; O2SAT 95
--- NOTE | 2020-07-31 14:57 | CHAPLAIN ---
Alesia was up in her chair watching tv when I visited. She told me about get her hand caught in her dog's collar when the dog was rushing to get out, and injured Alesia's finger. She's waiting for surgery today. Alesia was very pleasant and thanked me for visiting.
== END 2020-07-31 15:35 | disposition home or self-care (01) | DRG 514 ==
LOC: ER 17:54 → MS 20:40
PROVIDERS: Admitting Provider Student in an Organized Health Care Education/Training Program; Emergency Provider Physician Assistant; Visit Provider Student in an Organized Health Care Education/Training Program
PROC: 0PSV34Z Reposition Left Finger Phalanx with Internal Fixation Device, Percutaneous Approach (ICD-10-PCS; CPT 26727; principal; 2020-07-31 12:45)
PROC: 0PSV34Z Reposition Left Finger Phalanx with Internal Fixation Device, Percutaneous Approach (ICD-10-PCS; CPT 26727; 2020-07-31 12:45)
DX: S62.613A Displaced fracture of proximal phalanx of left middle finger, initial encounter for closed fracture (principal); X50.1XXA Overexertion from prolonged static or awkward postures, initial encounter; D64.9 Anemia, unspecified; I10 Essential (primary) hypertension; R26.9 Unspecified abnormalities of gait and mobility; M19.042 Primary osteoarthritis, left hand; M19.041 Primary osteoarthritis, right hand; Z85.038 Personal history of other malignant neoplasm of large intestine; Z87.440 Personal history of urinary (tract) infections; H90.42 Sensorineural hearing loss, unilateral, left ear, with unrestricted hearing on the contralateral side; Z90.49 Acquired absence of other specified parts of digestive tract; R41.3 Other amnesia
CPT/HCPCS: 26727; 29130; 80053; 85027; 87635; 99223; 99285; 71045; 73130; 73140; 85610; 99284; J0690; J1885; J2001; J2405

== ENCOUNTER 2020-08-12 15:36 | Outpatient (CLI) | payer MEDICARE, SELFPAY ==
--- NOTE | 2020-08-12 15:00 | DI.RAD_ITS ---
Exam(s) XR FINGER LT MIDDLE EXAM: XR FINGER LT MIDDLE CLINICAL HISTORY: f/u. Fracture TECHNIQUE: 2D digital imaging was performed. COMPARISON: CR,XR XR HAND LT COMPLETE from 07/30/2020 FINDINGS: There has been interval pinning of the previously described displaced oblique fracture site in the pr oximal phalanx of the 3rd finger. There is some improved alignment at the fracture site. No radiogr aphic evidence of osteomyelitis. IMPRESSION: DATA REPOSITORY: RADIATION DOSE DELIVERED:
== END 2020-08-12 15:37 | disposition home or self-care (01) ==
LOC: DIORS 15:37
PROVIDERS: Visit Provider Student in an Organized Health Care Education/Training Program
DX: S62.613D Displaced fracture of proximal phalanx of left middle finger, subsequent encounter for fracture with routine healing (principal); X50.1XXD Overexertion from prolonged static or awkward postures, subsequent encounter
CPT/HCPCS: 73140

== ENCOUNTER 2020-08-26 14:20 | Outpatient (CLI) | payer MEDICARE, SELFPAY ==
--- NOTE | 2020-08-26 14:22 | DI.RAD_ITS ---
Exam(s) XR FINGER LT MIDDLE EXAM: XR FINGER LT MIDDLE CLINICAL HISTORY: f/u. TECHNIQUE: 2D digital imaging was performed. COMPARISON: Prior x-rays 08/12/2020 FINDINGS: Again noted is the K-wire through oblique fracture of the proximal phalanx of the 3rd-middle finger. The fixation pin has migrated proximally appear 2 millimeters and is at the articular surface of the metacarpophalangeal joint at this time. The amount of separation of fracture fragments is similar t o 08/12/2020. There is no obvious radiographic evidence of osteomyelitis. IMPRESSION: DATA REPOSITORY: RADIATION DOSE DELIVERED:
== END 2020-08-26 14:21 | disposition home or self-care (01) ==
LOC: DIORS 14:20
PROVIDERS: Visit Provider Student in an Organized Health Care Education/Training Program
DX: S62.613D Displaced fracture of proximal phalanx of left middle finger, subsequent encounter for fracture with routine healing (principal); X58.XXXD Exposure to other specified factors, subsequent encounter
CPT/HCPCS: 73140

== ENCOUNTER 2020-09-23 14:20 | Outpatient (CLI) | payer MEDICARE, SELFPAY ==
--- NOTE | 2020-09-23 14:25 | DI.RAD_ITS ---
Exam(s) XR FINGER LT MIDDLE EXAM: XR FINGER LT MIDDLE CLINICAL HISTORY: f/u. TECHNIQUE: 2D digital imaging was performed. COMPARISON: CR XR FINGER LT MIDDLE from 08/26/2020 FINDINGS: The fixation wires been removed. There is stable alignment at the oblique fracture site in the proxi mal phalanx. Fracture line is still evident. No obvious radiographic evidence of osteomyelitis. IMPRESSION: DATA REPOSITORY: RADIATION DOSE DELIVERED:
== END 2020-09-23 14:21 | disposition home or self-care (01) ==
LOC: DIORS 14:20
PROVIDERS: Visit Provider Student in an Organized Health Care Education/Training Program
DX: N39.0 Urinary tract infection, site not specified (principal); S62.613D Displaced fracture of proximal phalanx of left middle finger, subsequent encounter for fracture with routine healing; X58.XXXD Exposure to other specified factors, subsequent encounter
CPT/HCPCS: 99213; 73140

== ENCOUNTER 2020-09-28 19:41 | Outpatient (REF) | payer MEDICARE, SELFPAY ==
[2020-09-28 19:04] LABS: Clarity Cloudy (Clear)
[2020-09-28 19:06] LABS: Specific Gravity 1.019 (1.005-1.025)
[2020-09-28 19:10] LABS: RBC 0-2 HPF (0-2); WBC >50 HPF (0-5)
[2020-09-28 19:11] LABS: Bacteria Many HPF (Negative); C & S Indicated? C&S Done As Ordered; Casts Negative LPF (Negative); Crystals Negative HPF (Negative); Epithelial Cells Few HPF (Negative); Mucus Negative (Negative); Other Cells Few Transitional (Negative)
== END 2020-09-28 19:42 | disposition home or self-care (01) ==
LOC: LBN 19:41
PROVIDERS: Visit Provider Nurse Practitioner Gerontology
DX: N39.0 Urinary tract infection, site not specified (principal)
CPT/HCPCS: 87077; 81003; 81015; 87086; 87186

== ENCOUNTER → 2020-10-27 14:27 | Outpatient (BNVA) | payer MEDICARE, SELFPAY | PROVIDERS: Visit Provider Nurse Practitioner Gerontology | DX: N39.0 Urinary tract infection, site not specified (principal) | CPT/HCPCS: 81003; 99213 ==

== ENCOUNTER → 2020-11-02 14:44 | Outpatient (BNVA) | payer MEDICARE, SELFPAY | PROVIDERS: Visit Provider Urology | DX: N39.0 Urinary tract infection, site not specified (principal) | CPT/HCPCS: 81003; 99213 ==

== ENCOUNTER 2020-11-02 16:17 | Outpatient (REF) | payer MEDICARE, SELFPAY | END 2020-11-02 16:18 | disposition home or self-care (01) | LOC: LBN 16:17 | PROVIDERS: Visit Provider Urology | DX: N39.0 Urinary tract infection, site not specified (principal) | CPT/HCPCS: 87077; 87086; 87186 ==

== ENCOUNTER 2020-12-25 02:26 | Outpatient (CLI) | payer MEDICARE, SELFPAY ==
[2020-12-25 13:04] LABS: Anion Gap 7.7 mmol/L (3-11); BUN 23 mg/dL (7-18); CO2 29.3 mmol/L (21.0-32.0); CREATININE 0.8 mg/dL (0.55-1.02); Calcium 9.3 mg/dL (8.5-10.1); Chloride 104 mmol/L (98-107); Glucose 105 mg/dL (74-106); Potassium 4.1 mmol/L (3.5-5.1); Sodium 141 mmol/L (136-145)
== END 2020-12-25 02:27 | disposition home or self-care (01) ==
LOC: LOS 02:26
DX: I10 Essential (primary) hypertension (principal)
CPT/HCPCS: 36415; 80048

== ENCOUNTER 2021-02-15 14:14 | Outpatient (REF) | payer MEDICARE, SELFPAY ==
[2021-02-15 11:50] LABS: Bilirubin Negative (Negative); Blood Large (Negative); Clarity Cloudy (Clear); Glucose Negative (Negative); Ketones Negative (Negative); Leukocyte Esterase Large (Negative); Nitrite Positive (Negative); Specific Gravity >= 1.030 (1.005-1.025); Urobilinogen 0.2 EU/dL (Up TO 0.2)
[2021-02-15 11:56] LABS: WBC >50 HPF (0-5)
[2021-02-15 11:58] LABS: C & S Indicated? C&S Done As Ordered
== END 2021-02-15 14:15 | disposition home or self-care (01) ==
LOC: LBN 14:14
PROVIDERS: Visit Provider Nurse Practitioner Gerontology
DX: N39.0 Urinary tract infection, site not specified (principal)
CPT/HCPCS: 87077; 81003; 81015; 87086; 87186

== ENCOUNTER → 2021-03-17 15:09 | Outpatient (BNVA) | payer MEDICARE, SELFPAY | PROVIDERS: Visit Provider Nurse Practitioner Gerontology | DX: N39.0 Urinary tract infection, site not specified (principal) | CPT/HCPCS: 81003; 99213 ==

== ENCOUNTER 2021-07-21 17:26 | Outpatient (REF) | payer MEDICARE, SELFPAY ==
[2021-07-21 14:33] LABS: Bilirubin Negative (Negative); Blood Small (Negative); Clarity Cloudy (Clear); Glucose Negative (Negative); Ketones Trace mg/dL (Negative); Leukocyte Esterase Large (Negative); Nitrite Positive (Negative); Specific Gravity >= 1.030 (1.005-1.025); Urobilinogen 0.2 EU/dL (Up TO 0.2); pH 5.5 (5-8)
[2021-07-21 14:46] LABS: WBC >50 HPF (0-5)
[2021-07-21 14:49] LABS: Bacteria Many HPF (Negative); Crystals Few Calcium Oxalate HPF (Negative); Epithelial Cells Rare HPF (Negative)
[2021-07-21 14:50] LABS: C & S Indicated? C&S Done As Ordered; Mucus Negative (Negative)
== END 2021-07-21 17:27 | disposition home or self-care (01) ==
LOC: LBN 17:26
PROVIDERS: Physician Assistant Medical; Visit Provider Urology
DX: N39.0 Urinary tract infection, site not specified (principal)
CPT/HCPCS: 87077; 81003; 81015; 87086; 87186

== ENCOUNTER 2021-09-08 20:51 | Outpatient (REF) | payer MEDICARE, SELFPAY ==
[2021-09-08 21:29] LABS: Bilirubin Negative (Negative); Blood Moderate (Negative); Clarity Cloudy (Clear); Glucose Negative (Negative); Ketones Negative (Negative); Leukocyte Esterase Large (Negative); Nitrite Negative (Negative); Urobilinogen 0.2 EU/dL (Up TO 0.2)
[2021-09-08 21:39] LABS: Bacteria Moderate HPF (Negative); C & S Indicated? Yes; Crystals Negative HPF (Negative); Epithelial Cells Negative HPF (Negative); Mucus Negative (Negative); Other Cells Few Renal (Negative); WBC >50 HPF (0-5)
== END 2021-09-08 20:52 | disposition home or self-care (01) ==
LOC: LBN 20:51
PROVIDERS: Visit Provider Physician Assistant
DX: R39.89 Other symptoms and signs involving the genitourinary system (principal)
CPT/HCPCS: 87077; 81003; 81015; 87086; 87186

== ENCOUNTER → 2021-09-15 15:11 | Outpatient (BNVA) | payer MEDICARE, SELFPAY | PROVIDERS: Visit Provider Nurse Practitioner Gerontology | DX: N39.0 Urinary tract infection, site not specified (principal) | CPT/HCPCS: 81003; 99214 ==

== ENCOUNTER 2022-01-05 02:48 | Outpatient (CLI) | payer MEDICARE, SELFPAY ==
[2022-01-05 12:43] LABS: ALT 22 U/L (14-59); AST 21 U/L (15-37); Albumin 3.6 g/dL (3.4-5.0); Alkaline Phosphatase 67 U/L (46-116); Anion Gap 7.1 mmol/L (3-11); BUN 20 mg/dL (7-18); Bilirubin, Total 0.8 mg/dL (0.2-1.0); CO2 26.9 mmol/L (21.0-32.0); CREATININE 0.7 mg/dL (0.55-1.02); Calcium 9.1 mg/dL (8.5-10.1); Chloride 106 mmol/L (98-107); Estimated GFR 86.83 (mL/min/1.73m2); Glucose 93 mg/dL (74-106); Potassium 4.1 mmol/L (3.5-5.1); Sodium 140 mmol/L (136-145); Total Protein 6.9 g/dL (6.4-8.2)
== END 2022-01-05 02:49 | disposition home or self-care (01) ==
LOC: LOS 02:48
PROVIDERS: Nurse Practitioner Family
DX: I10 Essential (primary) hypertension (principal)
CPT/HCPCS: 36415; 80053

== ENCOUNTER 2022-02-03 12:59 | Outpatient (REF) | payer MEDICARE, SELFPAY | END 2022-02-03 13:00 | disposition home or self-care (01) | LOC: LBN 12:59 | PROVIDERS: PCP Nurse Practitioner Family; Visit Provider Nurse Practitioner Family | DX: N39.0 Urinary tract infection, site not specified (principal) | CPT/HCPCS: 87086 ==

== ENCOUNTER → 2022-03-16 13:28 | Outpatient (BNVA) | payer MEDICARE, SELFPAY | PROVIDERS: PCP Nurse Practitioner Family; Referring Provider Nurse Practitioner Family; Visit Provider Nurse Practitioner Gerontology | DX: Z09 Encounter for follow-up examination after completed treatment for conditions other than malignant neoplasm (principal); Z87.440 Personal history of urinary (tract) infections | CPT/HCPCS: 81003; 99213 ==

== ENCOUNTER → 2022-09-14 15:14 | Outpatient (BNVA) | payer MEDICARE, SELFPAY | PROVIDERS: PCP Nurse Practitioner Family; Visit Provider Nurse Practitioner Gerontology | DX: R31.9 Hematuria, unspecified (principal); Z87.440 Personal history of urinary (tract) infections | CPT/HCPCS: 81003; 99213 ==

== ENCOUNTER 2022-09-14 16:48 | Outpatient (REF) | payer MEDICARE, SELFPAY | END 2022-09-14 16:49 | disposition home or self-care (01) | LOC: LBN 16:48 | PROVIDERS: PCP Nurse Practitioner Family; Visit Provider Nurse Practitioner Gerontology | DX: N39.0 Urinary tract infection, site not specified (principal) | CPT/HCPCS: 87077; 87086; 87186 ==

== ENCOUNTER 2022-10-24 10:25 | Outpatient (REF) | payer MEDICARE, SELFPAY ==
[2022-10-24 16:35] LABS: Bilirubin Negative (Negative); Blood Large (Negative); Clarity Cloudy (Clear); Glucose Negative (Negative); Ketones Negative (Negative); Leukocyte Esterase Moderate (Negative); Nitrite Negative (Negative); Specific Gravity >= 1.030 (1.005-1.025); Urobilinogen 0.2 mg/dL (Up to 0.2)
[2022-10-24 16:54] LABS: Bacteria Few HPF (Negative); C & S Indicated? Yes; Casts Negative LPF (Negative); Crystals Negative HPF (Negative); Epithelial Cells Rare HPF (Negative); Mucus Negative (Negative); RBC >50 HPF (0-2); WBC >50 HPF (0-5)
== END 2022-10-24 10:26 | disposition home or self-care (01) ==
LOC: LBN 10:25
PROVIDERS: PCP Nurse Practitioner Family; Visit Provider Nurse Practitioner Family
DX: R35.0 Frequency of micturition (principal); R39.15 Urgency of urination; N39.0 Urinary tract infection, site not specified
CPT/HCPCS: 81003; 81015; 87086

== ENCOUNTER 2022-12-15 13:30 | Outpatient (REF) | payer MEDICARE, SELFPAY ==
[2022-12-15 21:09] LABS: Bilirubin Negative (Negative); Blood Large (Negative); Clarity Cloudy (Clear); Glucose Negative (Negative); Ketones Negative (Negative); Leukocyte Esterase Moderate (Negative); Nitrite Positive (Negative); Specific Gravity 1.025 (1.005-1.025); Urobilinogen 0.2 mg/dL (Up to 0.2)
[2022-12-15 21:36] LABS: Bacteria Moderate HPF (Negative); C & S Indicated? Yes; Casts Negative LPF (Negative); Crystals Negative HPF (Negative); Epithelial Cells Rare HPF (Negative); Mucus Negative (Negative); RBC 20-50 HPF (0-2); WBC >50 HPF (0-5)
== END 2022-12-15 13:31 | disposition home or self-care (01) ==
LOC: LBN 13:30
PROVIDERS: PCP Nurse Practitioner Family; Visit Provider Physician Assistant
DX: R35.0 Frequency of micturition (principal); R39.15 Urgency of urination; R30.0 Dysuria; N39.0 Urinary tract infection, site not specified
CPT/HCPCS: 87077; 81003; 81015; 87086; 87186

== ENCOUNTER → 2023-01-16 12:48 | Outpatient (BNVA) | payer MEDICARE, SELFPAY | PROVIDERS: PCP Nurse Practitioner Family; Referring Provider Nurse Practitioner Family; Visit Provider Nurse Practitioner Gerontology | DX: N39.0 Urinary tract infection, site not specified (principal) | CPT/HCPCS: 99213 ==

== ENCOUNTER 2023-01-16 17:06 | Outpatient (REF) | payer MEDICARE, SELFPAY | END 2023-01-16 17:07 | disposition home or self-care (01) | LOC: LBN 17:06 | PROVIDERS: PCP Nurse Practitioner Family; Visit Provider Nurse Practitioner Gerontology | DX: R31.9 Hematuria, unspecified (principal) | CPT/HCPCS: 87077; 87086; 87186 ==

== ENCOUNTER 2023-01-27 11:43 | Outpatient (REF) | payer MEDICARE, SELFPAY | END 2023-01-27 11:44 | disposition home or self-care (01) | LOC: LBN 11:43 | PROVIDERS: PCP Nurse Practitioner Family; Visit Provider Nurse Practitioner Gerontology | DX: N39.0 Urinary tract infection, site not specified (principal); R31.9 Hematuria, unspecified | CPT/HCPCS: 87086 ==

== ENCOUNTER 2023-02-15 02:12 | Outpatient (CLI) | payer MEDICARE, SELFPAY ==
[2023-02-15 12:38] LABS: HCT 39.5 % (36.0-46.0); HGB 12.7 g/dL (11.2-15.7); MCH 28.2 pg (27.0-33.0); MCHC 32.2 % (32.0-36.0); MCV 88 fL (80-95); MPV 9.8 fL (8.0-11.0); Platelet Count 307 10^3/uL (130-400); RBC 4.51 10^6/uL (3.93-5.22); RDW 15.3 % (11.7-14.6); RDW-SD 48.7 fL; WBC 4.48 10^3/uL (4.4-10.8)
[2023-02-15 12:58] LABS: Anion Gap 8.4 mmol/L (3-11); BUN 17 mg/dL (7-18); CO2 26.6 mmol/L (21.0-32.0); CREATININE 0.6 mg/dL (0.55-1.02); Calcium 9.5 mg/dL (8.5-10.1); Calculated LDL 109 mg/dL (<100); Chloride 108 mmol/L (98-107); Cholesterol 208 mg/dL (<200); Estimated GFR 89.01 (mL/min/1.73m2); Glucose 102 mg/dL (74-106); HDL Cholesterol 66 mg/dL (40-60); Potassium 3.9 mmol/L (3.5-5.1); Sodium 143 mmol/L (136-145); Triglyceride 167 mg/dL (<150)
== END 2023-02-15 02:13 | disposition home or self-care (01) ==
LOC: LOS 02:13
PROVIDERS: PCP Nurse Practitioner Family; Visit Provider Nurse Practitioner Family
DX: D64.9 Anemia, unspecified (principal); I10 Essential (primary) hypertension; Z00.00 Encounter for general adult medical examination without abnormal findings; E78.5 Hyperlipidemia, unspecified
CPT/HCPCS: 36415; 80048; 80061; 85027

== ENCOUNTER → 2023-09-13 13:57 | Outpatient (BNVA) | payer MEDICARE, SELFPAY | PROVIDERS: PCP Nurse Practitioner Family; Visit Provider Nurse Practitioner Gerontology | DX: Z87.440 Personal history of urinary (tract) infections (principal) | CPT/HCPCS: 81003; 99213 ==

== ENCOUNTER 2024-02-23 02:31 | Outpatient (CLI) | payer MEDICARE, SELFPAY ==
[2024-02-23 12:32] LABS: HGB 11.9 g/dL (11.2-15.7); MCH 27.6 pg (27.0-33.0); MCHC 31.3 % (32.0-36.0); MCV 88 fL (80-95); MPV 9.9 fL (8.0-11.0); Platelet Count 354 10^3/uL (130-400); RBC 4.31 10^6/uL (3.93-5.22); RDW 14.6 % (11.7-14.6); RDW-SD 47.2 fL; WBC 6.32 10^3/uL (4.4-10.8)
[2024-02-23 13:11] LABS: ALT 21 U/L (14-59); AST 20 U/L (15-37); Albumin 3.4 g/dL (3.4-5.0); Alkaline Phosphatase 72 U/L (46-116); Anion Gap 7.4 mmol/L (3-11); BUN 28 mg/dL (7-18); Bilirubin, Total 0.58 mg/dL (0.2-1.0); CO2 26.6 mmol/L (21.0-32.0); CREATININE 0.8 mg/dL (0.55-1.02); Calcium 9.7 mg/dL (8.5-10.1); Calculated LDL 99 mg/dL (<100); Chloride 107 mmol/L (98-107); Cholesterol 191 mg/dL (<200); Estimated GFR 72.61 (mL/min/1.73m2); Glucose 101 mg/dL (74-106); HDL Cholesterol 65 mg/dL (40-60); Potassium 4.2 mmol/L (3.5-5.1); Sodium 141 mmol/L (136-145); Total Protein 7.1 g/dL (6.4-8.2); Triglyceride 138 mg/dL (<150)
== END 2024-02-23 02:32 | disposition home or self-care (01) ==
LOC: LOS 02:31
PROVIDERS: PCP Nurse Practitioner Family; Visit Provider Nurse Practitioner Family
DX: Z00.00 Encounter for general adult medical examination without abnormal findings (principal); I10 Essential (primary) hypertension; D64.89 Other specified anemias; R29.6 Repeated falls; H90.5 Unspecified sensorineural hearing loss; H61.23 Impacted cerumen, bilateral; H90.2 Conductive hearing loss, unspecified
CPT/HCPCS: 36415; 80053; 80061; 85027

== ENCOUNTER → 2024-03-13 13:55 | Outpatient (BNVA) | payer MEDICARE, SELFPAY | PROVIDERS: PCP Nurse Practitioner Family; Visit Provider Nurse Practitioner Gerontology | DX: Z87.440 Personal history of urinary (tract) infections (principal) | CPT/HCPCS: 81003; 99213 ==

== ENCOUNTER → 2024-09-18 14:16 | Outpatient (BNVA) | payer MEDICARE, SELFPAY | PROVIDERS: PCP Nurse Practitioner Family; Visit Provider Nurse Practitioner Gerontology | DX: N39.0 Urinary tract infection, site not specified (principal) | CPT/HCPCS: 99213; 81002 ==

== ENCOUNTER 2024-11-16 17:25 | Outpatient (REF) | payer MEDICARE, SELFPAY ==
[2024-11-16 17:33] LABS: Glucose Negative (Negative)
[2024-11-16 17:38] LABS: C & S Indicated? Yes
[2024-11-16 17:43] LABS: WBC >50 HPF (0-5)
== END 2024-11-16 17:26 | disposition home or self-care (01) ==
LOC: LBN 17:25
PROVIDERS: PCP Nurse Practitioner Family; Visit Provider Nurse Practitioner Family
DX: R30.0 Dysuria (principal)
CPT/HCPCS: 87077; 81003; 81015; 87086; 87186

== ENCOUNTER → 2025-03-05 11:26 | Outpatient (BNVA) | payer MEDICARE, SELFPAY | PROVIDERS: PCP Nurse Practitioner Family; Referring Provider Nurse Practitioner Family; Visit Provider Nurse Practitioner Gerontology | DX: N39.0 Urinary tract infection, site not specified (principal) | CPT/HCPCS: 99214; 81002 ==